=== PATIENT | male | born 1950 | race African-American/Black ===

== ENCOUNTER → 2021-10-21 13:56 | Outpatient (BNVA) | payer MEDICARE, BC, SELFPAY | PROVIDERS: Referring Provider Emergency Medicine; Visit Provider Podiatrist Foot & Ankle Surgery | DX: M79.671 Pain in right foot (principal); S92.351A Displaced fracture of fifth metatarsal bone, right foot, initial encounter for closed fracture; Y09 Assault by unspecified means | CPT/HCPCS: 73630; 99204 ==

== ENCOUNTER → 2021-11-11 15:40 | Outpatient (BNVA) | payer MEDICARE, BC, SELFPAY | PROVIDERS: Visit Provider Podiatrist Foot & Ankle Surgery | DX: S92.351D Displaced fracture of fifth metatarsal bone, right foot, subsequent encounter for fracture with routine healing (principal); Y04.8XXD Assault by other bodily force, subsequent encounter; M79.671 Pain in right foot | CPT/HCPCS: 73630; 99214 ==